=== PATIENT | female | born 1995 | race Caucasian/White ===

== ENCOUNTER 2018-10-11 18:12 | Emergency (ER) | payer OTHER ==
[2018-10-11 18:16] VITALS: Ht 147.3 cm
[2018-10-11 19:43] VITALS: BP 111/71
== END 2018-10-11 19:43 | disposition home or self-care (01) ==
LOC: ED 18:12
DX: S80.02XA Contusion of left knee, initial encounter (principal); S80.01XA Contusion of right knee, initial encounter; S50.812A Abrasion of left forearm, initial encounter; V43.52XA Car driver injured in collision with other type car in traffic accident, initial encounter; Y93.I9 Activity, other involving external motion; Y92.488 Other paved roadways as the place of occurrence of the external cause; Y99.8 Other external cause status
CPT/HCPCS: J2270; Q0092; Q0162